=== PATIENT | female | born 1935 ===

== ENCOUNTER 2021-02-16 15:59 | Emergency (ER) | payer OTHER ==
[~2021-02-16] VITALS: Ht 172.7 cm; Wt 72.6 kg
[2021-02-16] MEDS ORDERED: ALTACE5 MG PO (16:36)
[2021-02-16] MEDS ORDERED: METFORMIN HCL500 M3 PO (16:36)
[2021-02-16] MEDS ORDERED: SIMVASTATIN80 MG PO (16:36)
[2021-02-16] MEDS ORDERED: NORVASC2.5 M1 PO (16:36)
[2021-02-16] MEDS ORDERED: NEPHRON FA TAB1 EAC1 PO (16:37)
[2021-02-16] MEDS ORDERED: VIT A,C,D-0.25 MG/1 PO (16:37)
== END 2021-02-16 21:08 | disposition home or self-care (01) ==
LOC: ER 15:59
DX: L03.116 Cellulitis of left lower limb (principal); D64.89 Other specified anemias